=== PATIENT | male | born 1960 | race Caucasian/White ===

== ENCOUNTER 2020-07-23 12:23 | Inpatient (IN) | payer OTHER ==
[~2020-07-23] VITALS: Ht 152.4 cm; Wt 44.7 kg
--- NOTE | ~2020-07-23 | HC ---
[facility] [place] [address] CONSULTATION Name: PARAMJITCOSTA Room #: 458-P [facility] IN ..#: [id number] Admission: 07/23/20 Attend Phys: Kim Li Discharge: Date of : 64 Report #: [id number] THIS REPORT FOR: cc: YAMILKA - No family physician/PCP YAMILKA - No family physician/PCP Jose Delgado MD ~ DATE OF SERVICE: 07/27/2020 WOUND CARE CONSULTATION PERSONAL PHYSICIAN: None on staff. CHIEF COMPLAINT: Multiple decubitus ulcers. HISTORY OF PRESENT ILLNESS: This is a 59-year-old white male who supposedly resides in a care facility, who presented through the Emergency Department for altered mental status when he showed up for his dialysis treatment 2 days ago. The patient himself is obtunded and unable to give any history. There is no previous history from this patient. The patient was found to have multiple decubitus ulcers upon admission, which we have been asked to follow. PAST MEDICAL HISTORY: Significant for end-stage renal disease, on hemodialysis; history of a previous CVA. CURRENT MEDICATIONS: Unknown. DRUG ALLERGIES: Unknown. SOCIAL HISTORY: The patient resides in a care facility. FAMILY HISTORY: Unobtainable because of the patient's obtunded state. REVIEW OF SYSTEMS: Unobtainable because of the patient's obtunded state. PHYSICAL EXAMINATION: VITAL SIGNS: Temperature 37.1, pulse 58, respirations 15, BP 118/58. GENERAL: This is an obtunded white male who is chronically ill appearing. HEENT: Normocephalic, atraumatic. Mucous membranes are exquisitely dry. Pupils are round. Sclerae white. NECK: Without JVD. LUNGS: Diminished breath sounds heard throughout. HEART: Regular. ABDOMEN: Soft, nontender. PEG tube is in place without excoriation. EXTREMITIES: Sacral area, the patient has a stage 3 decubitus ulcer in the sacral region, which is mix of granulation and slough. No signs of overt [address] [address] CONSULTATION Name: COSTA YUSUF Room #: 458-[facility] IN .R.#: [id number] Admission: 07/23/20 Attend Phys: Kim Li Discharge: Date of : 64 Report #: [id number] infection. The upper back, there is an unstageable decubitus ulcer in the thoracic region with 100% slough. On the left hip, there is a deep tissue injury, which is ecchymotic, but not open. On the right hip, there is a deep tissue injury, which is ecchymotic, but not open. On the right ankle, there is a deep tissue injury, which is ecchymotic, but not open. NEUROLOGIC: The patient is encephalopathic and obtunded. LABORATORY DATA: White count 15.2, hemoglobin 7.9. BUN 57, creatinine 4.4, albumin 1.6. IMPRESSION: 1. Stage III sacral decubitus ulcer present on admission. 2. Unstageable decubitus ulcer, right thoracic region, present on admission. 3. Bilateral hip deep tissue injuries present on admission. 4. Right ankle deep tissue injury present on admission. 5. End-stage renal disease, on hemodialysis. 6. Encephalopathy with severe debility. 7. Severe protein-calorie malnutrition with albumin 1.6. PLAN: We will do foam dressings to the upper back, bilateral hips and right ankle deep tissue injury and we will start Z-guard to the sacral ulcer twice daily and p.r.n. We will change the foam dressings every 2 days. We will put the patient on low air loss mattress, having turned every 2 hours. We will utilize his PEG tube for tube feedings to maximize his protein supplementation as much as possible. At this time, the patient does not appear to be a candidate for any type of physical and occupational therapy. We will continue all other current medications. By: [id number] Jose Delgado MD /nt
--- NOTE | ~2020-07-23 | EMS ---
[address] [address] EMS Patient Care Report Name: COSTA YUSUF Room #: REG [facility] Mejía#: [id number] Admission: 07/23/20 Attend Phys: Discharge: Date of : 64 Report #: [id number] THIS REPORT FOR: //name// Report Transmitted: 07/23/2020 12:45 EMS Care Summary [place], [place]/[facility] Incident [id number] @ 07/23/2020 11:51 Incident Location [address] [place] [address] DIALYSIS Patient COSTA YUSUF Male, 59 Years 1960 Patient Address [address] [address] Patient History Kidney/Renal Failure,Dialysis, Patient Allergies No known allergies, Chief Complaint ALTERED LOC Disposition Transported No Lights/[place] Dispatch Reason Unconscious/Fainting Transported To [facility] Narrative UPON ARRIVAL PT IN DIALYSIS CHAIR, NURSE STATES SHE HAS ONLY WORKED WITH PT ONCE BEFORE HE IS NEW BUT HE IS MORE ALTERED THAN HE WAS WHEN SHE LAST SAW. PT ARRIVED FROM HIS NURSING IN THIS STATE. PT NORMAL A&O X 1 BUT HAS BEEN UNABLE TO ANSWER ANY QUESTIONS AND APPEARS LETHARIC. PT NORMALLY ABLE TO ANSWER SOME QUESTIONS BUT CONFUSION IS NORMAL. PT ALSO HAS A FAST HR SO DIALYSIS WAS [address] [address] EMS Patient Care Report Name: COSTA YUSUF Room #: REG [facility] Mejía#: [id number] Admission: 07/23/20 Attend Phys: Discharge: Date of : 64 Report #: [id number] NOT PERFORMED. PT LIFTED TO [facility] AND TRANSPORTED TO [facility]. Initial Vitals @12:07P: 73,SpO2: 73, @12:07P: 130,BP: 127/82,Pain: 0/10,GCS: 12,Glucose: 185,SpO2: 84, @12:16P: 133,R: 20,BP: 121/79,GCS: 12,CO: 10,SpO2: 98,Revised Trauma: 11, Assessments @12:00MENTAL:Other,SKIN:HEENT:LUNG SOUNDS:General: No Abnormalities,ABDOMEN:General: No Abnormalities,PELVIS//GI:EXTREMITIES:Left Arm: No Abnormalities,Right Arm: No Abnormalities,PULSE:NEURO:No Abnormalities, Impression Altered Mental Status Procedures @12:00ALS AssessmentResponse: UnchangedSucceeded@12:08Saline Lock 10cc (20 ga) Site: Forearm-LeftResponse: UnchangedSucceeded@PTAOxygen FlowRate: 2 Device: Nasal Cannula (NC) Response: UnchangedSucceeded@12:053-Lead ECGResponse: UnchangedSucceeded Timeline AGRICULTURE INSTRUCTOR,Oxygen FlowRate: 2 Device: Nasal Cannula (NC) Response: UnchangedSucceeded, 11:49,Call Received 11:49,Dispatch Notified 11:51,Dispatched 11:52,En Route 11:58,On Scene 11:59,At Patient 12:00,ALS Assessment,Response: UnchangedSucceeded, 12:05,3-Lead ECG,Response: UnchangedSucceeded, 12:07,BP: / M,PULSE: 73,RR: R,SPO2: 73 Ox,ETCO2: ,BG: ,PAIN: ,GCS: , 12:07,BP: 127/82 M,PULSE: 130,RR: R,SPO2: 84 Ox,ETCO2: ,B,PAIN: 0,GCS: 12, 12:08,Saline Lock 10cc 20 ga Site: Forearm-Left,Response: UnchangedSucceeded, 12:11,Depart Scene 12:16,BP: 121/79 M,PULSE: 133,RR: 20 R,SPO2: 98 Ox,ETCO2: ,BG: ,PAIN: ,GCS: 12, 12:18,At Destination 12:37,Call Closed Disclaimer v1.1 Copyright 2020 [employer] This EMS Care Summary contains data elements from the applicable legal record (which may be displayed differently). It is designed to provide pertinent information for the following purposes: continuity of care, clinical quality, and state data reporting. The complete [place] [address] EMS Patient Care Report Name: COSTA YUSUF Room #: REG [facility] Mejía#: [id number] Admission: 07/23/20 Attend Phys: Discharge: Date of : 64 Report #: [id number] and administrators of the receiving hospital in ES's Patient Tracker. All data is provided "as is."
[2020-07-23 12:25] VITALS: BP 119/76
[2020-07-23 13:18] LABS: HEMATOCRIT 25.5 % (42.0-52.0); HEMOGLOBIN 7.9 gm/dL (14.0-18.0); MCH 29.2 pg (26.0-34.0); MCHC 30.8 g/dL (28.0-37.0); PLATELET COUNT 783 thou/uL (150-400); RBC 2.69 mil/uL (4.50-6.00); RDW 19.9 % (10.5-14.5)
[2020-07-23 13:25] LABS: BE(vivo) -2.3 mmol/L (-2 to +3); HCO3 22.2 mmol/L (22.0-26.0); PCO2 36.5 mmHg (35.0-45.0); PO2 127.9 mmHg (80.0-100.0); pH 7.401 (7.360-7.450); sO2 98.6 % (92.0-98.0)
[2020-07-23 13:26] LABS: CALCIUM 11.8 mg/dL (8.5-10.1); CREATININE 6.9 mg/dL (0.7-1.3); POTASSIUM 5.6 mmol/L (3.5-5.1)
[2020-07-23 13:32] LABS: ALBUMIN 2.3 g/dL (3.4-5.0); TOTAL BILIRUBIN 0.3 mg/dL (0.2-1.0); TOTAL PROTEIN 9.4 g/dL (6.4-8.2)
--- NOTE | 2020-07-23 14:29 | EKG ---
[address] [address] ELECTROCARDIOGRAM REPORT Name: COSTA YUSUF [id number] Admission: 07/23/20 Attend Phys: Discharge: Date of : 64 Report #: [id number] [facility] ED Test Date: 2020-07-23 Test Time: 13:51:07 Pat Name: COSTA YUSUF Department: Room: Gender: Telecommunicator Supervisor: paramjit : 1960 Requested By: Oniel Gupta Order Number: [id number] MD: Ruddy Flores Measurements Intervals [place] Rate: 117 P: 78 ME: 163 QRS: 84 QRSD: 87 T: 71 QT: 340 QTc: 475 Interpretive Statements Sinus tachycardia Anteroseptal infarct, age indeterminate No previous ECG available for comparison Electronically Signed On 07-23-2020 14:28:50 PLANER OPERATOR / GRADER by Ruddy Flores [email or web address] <ELECTRONICALLY SIGNED> By: Ruddy Flores MD, [facility] 07/23/20 1428 1351 1351 Ruddy Flores MD, FACC /EPI
[2020-07-23 14:44] LABS: ABSOLUTE NEUTROPHILS 21.1 thou/uL (1.4-8.2)
[2020-07-23 14:45] LABS: ANISOCYTOSIS 2+; POLYCHROMASIA SLIGHT
[2020-07-23 14:46] LABS: URINE BILIRUBIN NEGATIVE (Negative); URINE BLOOD TRACE (Negative); URINE COLOR YELLOW; URINE GLUCOSE-RANDOM* NEGATIVE (Negative); URINE KETONES NEGATIVE (Negative); URINE NITRITE-REFLEX NEGATIVE (Negative); URINE PROTEIN (DIPSTICK) TRACE (Negative); URINE UROBILINOGEN 0.2 E.U./dl (0.2-1.0)
[2020-07-23 14:46] LABS: HYPOCHROMASIA SLIGHT
[2020-07-23 14:47] LABS: URINE CLARITY HAZY; URINE LEUKOCYTES-REFLEX 2+ (Negative)
[2020-07-23 14:53] LABS: SQUAMOUS None Seen /LPF (0-3)
[2020-07-23 14:54] LABS: BACTERIA-REFLEX 1-9 Few /HPF (None Seen); URINE RBC 0-2 Rare /HPF (0-2); URINE WBC-REFLEX 0-5 Rare /HPF (0-5)
[2020-07-23 14:55] LABS: AMORPHOUS URATES Few /LPF (None Seen); CASTS None Seen /LPF (None Seen)
[2020-07-23] MEDS ORDERED: TYLENOL325 MG PO (15:07)
[2020-07-23 16:00] LABS: APTT 25.4 Seconds (24.5-32.8); INR 1.2; PROTIME 11.6 Seconds (9.3-11.4)
[2020-07-23 20:55] VITALS: BP 122/89
[2020-07-23 21:59] VITALS: BP 108/72
[2020-07-23 22:51] VITALS: BP 127/74
[2020-07-24] VITALS (11 sets, daily range): BP systolic 117–149; BP diastolic 62–83
[2020-07-24 06:30] LABS: ALBUMIN 1.7 g/dL (3.4-5.0)
[2020-07-24 06:39] LABS: CREATININE 3.1 mg/dL (0.7-1.3); POTASSIUM 4.2 mmol/L (3.5-5.1)
--- NOTE | 2020-07-24 07:32 | NUR ---
PT ARRIVED TO ON CART VIA ER. HEMO DIALYSIS WAS DONE IN ER. DILTIAZEM DRIP AT 15ML/HR INFUSING FOR AFIB, HR IN 80'S AND TELE SHOWS AFIB STILL PRESENT. NPO STATUS SINCE ARRIVAL FOR POSSIBLE LUMBAR PUNCTURE. NO PAPER WORK SENT WITH PT FROM FACILITY. WILL ATTEMPT TO CALL SNF TODAY FOR BETTER MED REC AND H/P. ADMISSION COMPLETED, CARE PLAN STARTED AND INTERVENTIONS IN PLACE. PT IS A/O X0 AND AMS.
--- NOTE | 2020-07-24 10:33 | NUR ---
WOUND CONSULT; ASESSMENT FINDINGS; THE PATIENT ARRIVED AT OUR FACILITY WITH TWO (2) DEEP TISSUE INURIES TO THE RIGHT HIP AND RIGHT FOOT. THEY ARE STABLE AT THIS TIME. THE PATIENT CURRENTLY HAS A LOW AIRLOSS PUMP/MATTRESS EMPLOYED. RECOMMENDATIONS; 1-CONTINUE LOW AIRLOSS PRESSURE REDISTRIBUTION THERAPY. 2-TURN PATIENT EVERY TWO (2) HOURS. 3-PAINT WOUNDS WITH BETADINE APPLY A BORDER FOAM, CHANGE M/W/F PRN. DISCUSSED WITH TYE
--- NOTE | 2020-07-24 11:07 | NUR ---
Nutrition: REC start Nepro tube feeds to reach 35 mL/hr. If no feeding pump available, REC 4 cartons Nepro daily via bolus. Defer fluid needs to renal.
--- NOTE | 2020-07-24 11:23 | NUR ---
CARE ASSUMED AT 0700, PT AWAKE, UNABLE TO FOLLOW COMMANDS, DISORIENTED X4. PT IS ON ROOM AIR, NO SIGNS OF DISTRESS. CALLED PT FACILITY, TO GET PT CHART. PT HAS A LUMBAR PUNCTURE SCHEDULED, CALLED FACILITY TO FIND OUT WHO PT'S DPOA OR NEXT OF KIN IS, WAS TOLD PT DO NOT HAVE ONE, PRIOR TO ADMISSION HE WAS MAKING DECISION FOR HIMSELF. DR. MTZ MADE AWARE AND HE SIGNED CONSENT. SOLITARIO PRADO WITH PT ENHANCED PRECAUTIONS AVIS. DANYA D/C, HR IN 70. FALL PRECAUTIONS IN PLACE. WILL CONTINUE TO MONITOR.
[2020-07-24 12:07] LABS: HEP B SURFACE Ab(ANTI-HBS Non Reactive (()); HEPATITIS B SURFACE AG Negative (Negative)
[2020-07-24 14:12] LABS: CSF CLARITY CLEAR; CSF COLOR COLORLESS
[2020-07-24 14:22] LABS: CSF GLUCOSE 70 mg/dL (40-70); CSF PROTEIN 40 mg/dL (15-45)
[2020-07-24 14:25] LABS: CSF RBC 5 /mm3; CSF WBC 0 /mm3 (0-10)
--- NOTE | 2020-07-24 15:43 | NUR ---
1400 PT BACK FROM LUMBAR PUNCTURE PROCEDURE, VITALS SIGNS TAKE PER PROTOCOL. PT HPB 90 DEGREE. DENIES ANY NEEDS DEBBI
--- NOTE | 2020-07-24 16:16 | NUR ---
INITIAL ASSESSMENT: Received consult. TIMA reviewed chart and spoke with nursing and attending physician. Pt was admitted from [facility] due to AMS/sepsis. Pt placed in Enhanced Isolation to r/o COVID-19. Pt's test was negative. Enhanced Isolation precautions have been discontinued. Pt is a dialysis pt. Pt with hx of CVA. Pt unable to answer questions. Nursing received call from a immigration case manager who knows pt. SW placed call to the contact number: [phone] and left voice message. TIMA left message for TIMA Arroyo at [facility] to obtain info on pt. Pt had LP earlier today. Per nursing, pt was living at home. Was found down at home and taken to [facility]. Pt was then transferred to [facility] from [facility]. Awaiting call back from [facility] at this time. TIMA is following to assist as needed with discharge planning.
[2020-07-24] MEDS ORDERED: PROAIR HFA8.5 GM NEB (17:33)
[2020-07-24] MEDS ORDERED: NORVASC 2.5 MG2.5 M1 PO (17:35)
[2020-07-24] MEDS ORDERED: ASA81BEC PO (17:35)
[2020-07-24] MEDS ORDERED: DULCOLAX10 MG RECTAL (17:37)
[2020-07-24] MEDS ORDERED: FOLIC ACID1 MG PO (17:38)
[2020-07-24] MEDS ORDERED: HYDRALAZINE 2525 MG PO (17:39)
[2020-07-24] MEDS ORDERED: LEVETIRACETAM500 M1 PO (17:48)
[2020-07-24] MEDS ORDERED: SENNA-DOCUSATE1 EAC1 PO (17:52)
[2020-07-24] MEDS ORDERED: VITAMIN B-1100 M2 PO (17:53)
[2020-07-24] MEDS ORDERED: SERTRALINE HCL100 MG PO (17:53)
[2020-07-24] MEDS ORDERED: TRAMADOL 50 MG50 MG PO (17:57)
[2020-07-24] MEDS ORDERED: KEPPRA 500 MG500 M1 PO (17:59)
[2020-07-24] MEDS ORDERED: WHITE PETROLATUM5 G1 TOP (18:01)
--- NOTE | 2020-07-24 18:21 | NUR ---
REPORT GIVEN TO TYE MIGUEL. PT TX TO 4W, ROOM 455
--- NOTE | 2020-07-24 20:02 | NUR ---
REceived pt from [facility], placed on telemetry. IV fluids resumed, POC followed with no signs or verbalizations of distress noted. Endorsed to the night nurse.
[2020-07-25 04:06] LABS: SERUM ALBUMIN 2.6 g/dL (3.8-4.9)
[2020-07-25 05:20] LABS: MCH 30.3 pg (26.0-34.0); MCV 94.9 fL (80.0-100.0); RBC 1.94 mil/uL (4.50-6.00); RDW 19.2 % (10.5-14.5); WBC 15.2 thou/uL (4.0-11.0)
[2020-07-25 05:29] LABS: HEMATOCRIT 18.4 % (42.0-52.0); HEMOGLOBIN 5.9 gm/dL (14.0-18.0)
[2020-07-25 06:11] LABS: ALBUMIN 1.6 g/dL (3.4-5.0); CALCIUM 8.9 mg/dL (8.5-10.1); CREATININE 3.5 mg/dL (0.7-1.3); PHOSPHORUS 5.1 mg/dL (2.5-4.9); POTASSIUM 3.8 mmol/L (3.5-5.1)
[2020-07-25 07:28] VITALS: BP 163/90
--- NOTE | 2020-07-25 08:28 | NUR ---
progress pt a/o x4 able to express needs and assist in oral care, repositioned as needed, ivf's infusing tele reading afib but stable rate. pt remains npo, critical hgb of 5.9 reported to don turner 1 unit prbc's ordered with a hgb recheck 1 hour post transfusion awaiting blood.
[2020-07-25 10:47] VITALS: BP 137/67; BP 138/52; BP 142/61; BP 155/94
--- NOTE | 2020-07-25 13:39 | NUR ---
FAXED CLINICAL UPDATES TO [facility] INCLUDING NEGATIVE COVID AND WOUND CARE NOTES. P:[phone]; F:[phone].
--- NOTE | 2020-07-25 14:38 | NUR ---
CM CALLED AND SPOKE WITH SW AT [facility] THIS DAY. PT HAD COME TO THEM FROM [facility]. PT GOES TO DIALYSIS MWF CHAIR TIME AT 10:30 AT [facility]. STAFF INDICATED THAT PT'S HAS NO FAMILY BUT THAT A FRIEND ESDRAS Berry IS LISTED CONTACT . CM INDICATED PREVIOUSLY WAS [facility]. PT'S WC IS AT [facility]. CLINICAL UPDATE SENT TO FACILITY. THEY INDICATED THAT THEY WILL BE ABLE TO ACCEPT PT BACK ONCE MEDICALLY STABLE. CM TO FOLLOW INDICATED WITH DC PLANNING. PT HAD LP YESTERDAY. PT GETTING BLOOD TRANSFUSION.
[2020-07-25 15:25] LABS: HEMATOCRIT 24.7 % (42.0-52.0)
[2020-07-25 15:27] VITALS: BP 141/75
[2020-07-25 15:28] LABS: HEMOGLOBIN 7.9 gm/dL (14.0-18.0)
[2020-07-25 19:42] VITALS: BP 151/73
--- NOTE | 2020-07-25 20:21 | NUR ---
Received awake on bed. On nothing per orem, pt informed and aware; mouth care done. Assisted in ADLs. Vital signs stable. On telemetry; no complains and signs of chest pain, crushing sensation and heaviness. With PEG- no dressing in place, dressing changed today- verified with Dr Li if ok to use- may use PEG, TF regimen ordered; Nephro at 45ml/hr started, H2O flushes ordered as well. Dialysis pt, --, not seen by dialysis today- night RN informed; with dialysis access at R chest. With noel in place, draining well; output measured and recorded accordingly. With wound at R hip and bilat ankles- pt refused dressing changes today, despite trying several times- night RN informed. Pt turned regulary, refusing at times; pillows placed on pressure points. With orders for 1 unit PRBC blood transfusion, pt unable to sign consent; no family or DPOA listed- Dr Li signed consent; HB: 5.9. Verified with blood bank staff re: donor type and pt's type- O+ and O-, ok to transfuse as per blood bank staff. Blood transfused as per protocol; no untoward reactions noted. Falls bundle in place. [facility] called, asked for update- given; informed that pt's wheelchair is with them- CM informed; pt's rehab center also called- update given. Repeat H&H at 1600: 7.9- Night RN updated. Had a bowel movement today- charted; no bleeding noted. To continue monitoring patient.
[2020-07-26 07:13] VITALS: BP 158/90
[2020-07-26 08:25] LABS: ALBUMIN 1.6 g/dL (3.4-5.0); CALCIUM 9.4 mg/dL (8.5-10.1); CREATININE 4.4 mg/dL (0.7-1.3); PHOSPHORUS 5.4 mg/dL (2.5-4.9); POTASSIUM 3.9 mmol/L (3.5-5.1)
--- NOTE | 2020-07-26 08:40 | NUR ---
PROGRESS PT SLEPT THROUGHOUT NOC. REPOSITIONED NEEDED TUBE FEEDING INFUSING WITHOUT DIFFULTY SCANT RESIDUAL NOTED ON CHECK 400 CC'S WATER FLUSHED THROUGHOUT NIGHT , MUKHERJEE INTACT DRAINING LIGHT JETT URINE IN MODERATE AMOUNTS. WOUNDS TO BOTH ANKLES AND RIGHT HIP C/D/I. CONTINUE POC.
--- NOTE | 2020-07-26 09:26 | NUR ---
WOUND CARE F/U; ON THE F/U ASSESSMENT TODAY TO ASSESS RIGHT HIP AND THE RIGHT ANKLE, I DESCOVERED A STAGE 3 PRESSURE ULCER TO THE SACRUM, A LEFT HIP DEEP TISSUE INJURY THAT IS STABLE AND A DEEP TISSUE INJURY TO THE RIGHT UPPER BACK. THE RIHIP AND ANKLE DTI'S REMAIN STABLE. THE SACRUM WOUND HAS BEEFY RED TISSUE THAT HAS S/S OF VARING DEGREES OF HEALING, AND CERTAINLY WAS PRESENT ON ADMISSION. RECOMMENDATIONS; 1-CONSULT DR TAMIKO KEARNEY. 2-BORDER FOAM DRESSINGS TO ALL AREAS. DISCUSED WITH TYE
--- NOTE | 2020-07-26 12:42 | NUR ---
ASSUMED PT CARE THIS AM. PT ALERT TO SELF BUT SLOW TO REPSOND WHEN ASKED QUESTIONS. BOWEL MOVEMENT TODAY. PT BEING REPOSITIONED ACCORDINGLY. WOUND NURSE CAME AND DRESSED WOUNDS. NEW TUBE FEEDING HUNG, RATE OF 45/HR. RECEIVING DIALYSIS TODAY. FALL PRECAUTIONS IN PLACE. FOELY IN PLACE, DRAINING WELL.
[2020-07-26 15:23] VITALS: BP 128/78
[2020-07-26 20:15] VITALS: BP 140/81
--- NOTE | 2020-07-27 05:50 | NUR ---
VSS-AFEBRILE. REMAINS ON ROOM AIR. NON VERBAL OVERNIGHT, OPENS EYES WHEN SPOKEN TO. INCONTINENT TWICE OF BOWEL, DRAINING ADEQUATE AMOUNTS OF URINE TO DEPENDENT DRAINAGE BAG. NO RESIDUAL NOTED WITH TUBE FEEDING. TURNED AND PROVIDED ORAL CARE EVERY TWO HOURS. PRESSURE WOUND DRESSINGS REMAIN IN PLACE. FALL PRECAUTIONS IN PLACE.
[2020-07-27 07:52] VITALS: BP 118/58
--- NOTE | 2020-07-27 12:42 | NUR ---
ASSUMED PT CARE THIS AM. PT RECIEVING NEPHRO AT 45. DIARRHEA NOTED THROUGHOUT SEAL SKINNER, REPORTED TO DR. CARDENAS SYSTEM TO BE PLACED. ON AN ENVISION MATTRESS. PT BEING REPOSITIONED ACCORDINGLY. IV PATENT. MEDS GIVEN WITHOUT COMPLAINT THIS AM. FALL PRECAUTIONS IN PLACE.
--- NOTE | 2020-07-27 13:17 | NUR ---
Nutrition: Nepro at 45 mL/hr meets 125% kcal needs, 116% high end protein needs. Concerned about overfeeding. REC decrease rate to 40 mL/hr which will adequately meet needs for wound healing/dialysis. Defer fluid needs to renal.
[2020-07-27 14:08] LABS: CSF IgG 3.3 mg/dL (0.0-8.6)
--- NOTE | 2020-07-27 14:50 | NUR ---
PT HAD DIALYSIS YESTERDAY. PT HAD FECAL MANAGEMENT SYSTEM PLACED THIS DAY AND A STOOL SAMPLE TAKEN TO TEST FOR CDIFF. CM SPOKE WITH CHANDLER AT THE FACILITY AND PROVIDED UPDATE. CLINICAL UPDATE FAXED TO FACILITY. CARE TEAM INDICATED NO DISCHARGE OVER THE WEEKEND. CM TO FOLLOW INDICATED WITH DC PLANNING.
[2020-07-27 15:46] VITALS: BP 118/58
[2020-07-27 15:47] VITALS: BP 140/77
--- NOTE | 2020-07-28 05:01 | HC ---
[facility] [place] [address] CONSULTATION Name: COSTA YUSUF Room #: 458-P [facility] [place] M.R.#: [id number] Admission: 07/23/20 Attend Phys: Kim Li Discharge: Date of : 64 Report #: [id number] THIS REPORT FOR: cc: YAMILKA - No family physician/PCP YAMILKA - No family physician/PCP Alex Harrington MD ~ DATE OF SERVICE: 07/27/2020 INFECTIOUS DISEASE CONSULTATION ATTENDING PHYSICIAN: Dr. Li. REASON FOR EVALUATION: Positive blood culture, concerned about line-related septicemia versus sacral decubitus ulcer, complicating infection. HISTORY OF SUBJECTIVE: Chart reviewed, patient examined. This is a 59-year-old gentleman with significant disease burden, has diabetes mellitus, has been complicated by end-stage renal disease, now on dialysis thrice weekly, presented from a [facility] facility. He has had significant encephalopathy. It is difficult to know with certain what his baseline is. He does arouse. Speech is nonsensical. As he presented, he was in mild respiratory failure. Urine was collected and is otherwise unrevealing. Blood cultures at that time were collected, now 1 out of 2 with Gram-positive cocci, identified as Staphylococcus epidermidis. Wound culture from the decubitus ulcer showed rare wbcs, no organisms. Cultures negative thus far. He has had some intermittent low-grade temperature elevations, apparently is tolerating enteral feedings, which he gets, is empirically dosed with vancomycin, received cefepime as well as has been discontinued. ALLERGIES: None known. MEDICATIONS: Currently include vancomycin, sertraline, levetiracetam, heparin, insulin lispro, zolpidem, p.r.n. analgesics and antiemetics. PAST MEDICAL HISTORY: End-stage renal disease, on dialysis; osteoporosis; chronic pancreatitis; diabetes mellitus. SOCIAL HISTORY: He is disabled. FAMILY HISTORY: Noncontributory. REVIEW OF SYSTEMS: Not reliably obtained. PHYSICAL EXAMINATION: GENERAL: He appears chronically ill, much older than stated age. He is [address] [address] CONSULTATION Name: COSTA YUSUF Room #: 458-P [facility] [place] M.R.#: [id number] Admission: 07/23/20 Attend Phys: Kim Lee Mahoganyhelder Discharge: Date of : 64 Report #: [id number] undernourished. He does arouse, although again his speech is nonsensical. VITAL SIGNS: Temperature 98.8, pulse 58, respirations 15, and blood pressure 118/58. SKIN: Warm, dry, no rashes. HEENT: Normocephalic. Extraocular muscles intact. NECK: Appears to be supple. LUNGS: Few scattered coarse breath sounds. HEART: Distant, regular, has a soft systolic murmur. ABDOMEN: Soft, nontender. Of note, photographs of the sacral decubitus ulcer, there appears to be unstageable [id number]-db-eamqkzgs degree of inflammation noted. LABORATORY DATA: Cultures as described above. Most recent BMP: Sodium 145, potassium 3.9, chloride 110, bicarbonate is 21, anion gap of 14, BUN and creatinine 57 and 4.4, glucose 122, albumin 1.6. Vancomycin random was 9. CBC on 07/25/2020, white count of 15.2, H and H of 5.9 18.4, platelets of 438. Did undergo a spinal tap, which showed CSF to be clear and colorless, 0 white cells, 5 red cells, glucose of 70, protein of 40. Urine culture is negative thus far. ASSESSMENT: Positive blood culture in a patient that certainly is at risk for infectious complications including septicemia given longstanding indwelling central venous catheter due to dialysis. He apparently screened for sepsis as well. We will continue vancomycin. We will repeat blood cultures, although it likely favors a noninfectious or false positive contaminant. The wound itself may well have some degree of low-grade infection as well. We will continue wound care as prescribed, offloading, at some point may need debridement. Consider imaging of the sacral site, it is difficult to ascertain his baseline at this point. I will try to optimize her nutritional status. We will see if his encephalopathy improves overall difficult situation. <ELECTRONICALLY SIGNED> By: Alex Harrington MD 07/28/20 0501 1118 1731 Alex Harrington MD /nt
--- NOTE | 2020-07-28 05:10 | NUR ---
VSS-AFEBRILE. AWAKE AND ABLE TO ANSWER SOME YES AND NO QUESTIONS. WAS ABLE TO ASK STAFF TO SMOKE A CIGARETTE. SUCTIONED LARGE AMOUNTS OF CLEAR SPUTUM FROM MOUTH, HAS DIFFICULTY GETTING SPUTUM OUT OF MOUTH. INCONTINENT OF LARGE, WATERY STOOLS MULTIPLE TIMES THROUGHOUT NIGHT. ALL MEDICATIONS GIVEN THROUGH PEG TUBE WITH WATER FLUSHES. ORAL CARE AND TURNS EVERY TWO HOURS FOR COMFORT. FALL PRECAUTIONS IN PLACE.
[2020-07-28 07:01] LABS: HEMOGLOBIN 6.8 gm/dL (14.0-18.0); MCHC 32.2 g/dL (28.0-37.0)
[2020-07-28 07:03] LABS: HEMATOCRIT 21.1 % (42.0-52.0); MCH 29.2 pg (26.0-34.0); MCV 90.9 fL (80.0-100.0); RBC 2.32 mil/uL (4.50-6.00)
[2020-07-28 07:16] LABS: ALBUMIN 1.5 g/dL (3.4-5.0); CALCIUM 9.9 mg/dL (8.5-10.1); POTASSIUM 3.5 mmol/L (3.5-5.1)
[2020-07-28 07:27] LABS: CREATININE 2.9 mg/dL (0.7-1.3)
[2020-07-28 08:00] VITALS: BP 121/65
--- NOTE | 2020-07-28 15:25 | NUR ---
Assumed pt care at 7am.Assessment completed.vss.Complete bath and bed change done by change control coordinator.Turned and repositioned q2h for comfort.Meds given per peg tube and well tolerated.Dr Li here,order noted.No verbal c/o at present.Will continue to monitor.
[2020-07-28 16:13] VITALS: BP 138/68
[2020-07-28 19:00] VITALS: BP 136/50
--- NOTE | 2020-07-29 03:25 | NUR ---
VSS-AFEBRILE. ALERT AND ORTINETED X 2, AROUSES TO COMMAND, ABLE TO FOLLOW SIMPLE COMMANDS. TURNED AND PROVIDED ORAL CARE EVERY TOW HOURS FOR COMFORT. TUBE FEEDING RUNNING WITH VERY SMALL AMOUNT OF RESIDUAL PRESENT. MUKHERJEE CONTINUES TO DRAIN SMALL AMOUNT OF LIGHT YELLOW URINE TO DEPENDENT DRAINAGE BAG. FALL PRECAUTIONS IN PLACE.
[2020-07-29 05:21] LABS: ALBUMIN 1.4 g/dL (3.4-5.0); CALCIUM 10.1 mg/dL (8.5-10.1); CREATININE 3.7 mg/dL (0.7-1.3); PHOSPHORUS 2.7 mg/dL (2.5-4.9); POTASSIUM 3.5 mmol/L (3.5-5.1)
[2020-07-29 05:23] LABS: HEMOGLOBIN 6.6 gm/dL (14.0-18.0)
[2020-07-29 05:26] LABS: HEMATOCRIT 20.3 % (42.0-52.0); MCH 29.3 pg (26.0-34.0); MCHC 32.4 g/dL (28.0-37.0); MCV 90.4 fL (80.0-100.0); RBC 2.25 mil/uL (4.50-6.00); RDW 18.7 % (10.5-14.5); WBC 15.5 thou/uL (4.0-11.0)
[2020-07-29 08:11] VITALS: BP 147/79
[2020-07-29 15:40] VITALS: BP 143/68
[2020-07-29 16:25] VITALS: BP 148/97; BP 172/85
[2020-07-29 19:40] VITALS: BP 165/99
--- NOTE | 2020-07-29 20:10 | NUR ---
Assumded pt care this am, VS stable, on tele would run ST at times. Hgb is noted to be at 6.6 blood transfusion orders given. Hgb was also noted to be 6.8 on 07/28 at 0426, no Blood transfusion was ordered MD aware. PEG tube in place nepro running at goal rate of 45. For dialysis tomorrow, refused Q2 turns at times. POC followed with no signs of distress. Endorsed to the night nurse, blood transfusion to end at 2039
--- NOTE | 2020-07-30 03:58 | NUR ---
PT CARE ASSUMED WITH PT IN BED WITH BLOOD TRANSFUSING.BLOOD TRANSFUSION FINISHED AT 2030 WITH NO REACTION AND VITAL SIGN WNL FOR PATIENT.PT IS ON BEREST.PT IS Q2 TURN AND WOUND DRESSINGS DONE.PT HAS A VERY LARGE LOOSE BM THIS AM.PT IS MAX ASSIST.PT HAS A PEG TUBE WITH LEPRO FLOWING AT 45CC/HR WITH IS THE GOAL.PT IS ON TELE NSR AND ST.WILL CONTINUE TO MONITOR PER POC
[2020-07-30 06:15] LABS: HEMATOCRIT 27.1 % (42.0-52.0)
[2020-07-30 07:00] LABS: HEMOGLOBIN 8.7 gm/dL (14.0-18.0)
[2020-07-30 07:32] VITALS: BP 173/82
--- NOTE | 2020-07-30 13:08 | NUR ---
ASSUMED PT CARE THIS AM. PT ALERT, RESPONDING TO QUESTIONS. PT BEING REPOSITIONED APPROPRIATLEY. NEPHRO RUNNING AT 45. WOUND DRESSINGS C/D/I. ON ENVISION MATTRESS. FALL PRECAUTIONS IN PLACE.
[2020-07-30 15:33] VITALS: BP 163/76
[2020-07-30 20:00] VITALS: BP 157/99
--- NOTE | 2020-07-31 05:05 | NUR ---
VSS-AFEBRILE. RESTED WELL THROUGH NIGHT WITH FEW NEEDS. INCONTINENT OF STOOL TWICE OVERNIGHT. STOOLS WERE DARK BROWN AND WATERY. TUBE FEEDING RUNNING AT GOAL RATE OF 45ML/HOUR, RESIDUAL OF 10ML. WATER BOLUSES ADMINISTERED ORDERED. FALL PRECAUTIONS IN PLACE. TURNED AND PERFORMED ORAL CARE EVERY TWO HOURS FOR COMFORT. BARRIER CREAM APPLIED TO ALL ABRASIONS AND SORES.
[2020-07-31 05:57] VITALS: BP 171/100
[2020-07-31 06:24] LABS: HEMATOCRIT 25.1 % (42.0-52.0)
--- NOTE | 2020-07-31 13:03 | NUR ---
ASSUMED PT CARE THIS AM. PT MUKHERJEE IS PATENT. BOTH IV'S ARE PATENT. TUBE FEEDING RUNNING AT 45. PT BEING REPOSITIONED Q2H. RECEIVING DIALYSIS TODAY. FALL PRECAUTIONS IN PLACE.
[2020-07-31] MEDS ORDERED: METOPROLOL TART25 MG PO (13:23)
[2020-07-31] MEDS ORDERED: AUGMENTIN400 MG/53 PER TUBE (13:23)
[2020-07-31] MEDS ORDERED: CARDIZEM30 MG PER TUBE (13:23)
--- NOTE | 2020-07-31 16:01 | NUR ---
CARE TEAM INDIATED THAT THERE IS A REPEAT H/H PENDING, PT'S BP IS A LITTLE HIGH. SHE INDICATED THAT PT MAY BE MEDICALLY STABLE TO DC BACK TO FACILITY TOMORROW. CLINICAL UPDATE SENT TO [facility] AND THEY WERE NOTIFIED OF POSSIBLE DC TOMORROW.
--- NOTE | 2020-07-31 16:05 | NUR ---
FAXED CLINICAL UPDATE TO [facility] RECEIVED CONFIRMATION PT WILL DC TOMORROW.
[2020-07-31 16:14] LABS: HEMATOCRIT 22.9 % (42.0-52.0); HEMOGLOBIN 7.4 gm/dL (14.0-18.0)
--- NOTE | 2020-07-31 16:53 | NUR ---
ASSUMED PT CARE THIS AM. PT YAZ IS PATENT. TUBE FEEDING RUNNING AT 45. PT BEING REPOSITIONED Q2H. RECEIVING DIALYSIS TODAY. FALL PRECAUTIONS IN PLACE.
[2020-07-31 19:05] VITALS: BP 143/74
--- NOTE | 2020-08-01 05:26 | NUR ---
VSS-AFEBRILE. ALERT AND ORIENTED X 4, C/O SEVERE BILATERAL LOWER EXTREMITY PAIN, PATIENT STATES THAT IT IS CAUSED BY CRAMPING AND TENSION IN HER LE MUSCLES. TREMORS ARE VISIBLE. ORAL AND IV PAIN MEDICATIONS PROVIDES PARTIAL RELIEF OF PAIN. BLOOD PRESSURE REMAINED STABLE THROUGH NIGHT. SR-LUNGS CLEAR-CPAP WITH 2L O2 BLEED IN WHILE SLEEPING. WOUND PRESENT ON SMALL OF BACK. NO REPORTED NAUSEA/VOMITING. TURNED AND OFFERED FLUIDS EVERY TWO HOURS. FALL PRECAUTIONS IN PLACE. BED PADDED FOR SEIZURE PRECAUTIONS PATIENT HAD LAST SEIZURE JUST TWO MONTHE AGO. CALLS APPROPRIATELY FOR ANY NEEDED ASSISTANCE. PATIENT IS PARAPLEGIC WITH ONLY USE OF UPPER EXTREMITIES.
--- NOTE | 2020-08-01 05:32 | NUR ---
VSS-AFEBRILE. TUBE FEEDING TURNED OFF AT MIDNIGHT PER ORDER FROM DR MILES. TURNED AND ORAL CARE PERFORMED EVERY TWO HOURS. NO BM THIS SHIFT. SMALL AMOUNT OF URINETO DEPENDENT DRAINAGE BAG VIA MUKHERJEE CATHETER, FALL PRECAUTIONS IN PLACE. EASILY AROUSABLE THROUGH NIGHT. C/O PAIN WITH ANY MANIPULATION. PAIN IS WELL RELIEVED WITH PRESCRIBED IV MORPHINE.
[2020-08-01 08:06] VITALS: BP 125/67
[2020-08-01 10:21] LABS: HEMATOCRIT 21.7 % (42.0-52.0); HEMOGLOBIN 7.2 gm/dL (14.0-18.0)
[2020-08-01 11:44] LABS: CALCIUM 9.8 mg/dL (8.5-10.1); CREATININE 1.9 mg/dL (0.7-1.3); POTASSIUM 3.8 mmol/L (3.5-5.1)
--- NOTE | 2020-08-01 14:02 | NUR ---
GI CONSULTED AND PLAN FOR EGD THIS DAY. CEZAR MET WITH PT AT BEDSIDE THIS DAY CM ASKED PT SPECIFICALLY IF HE HAD ANY FAMILY OR CONTACTS REGARDING MEDICAL DECISIONS. PT INDICATED HE DIDN'T. CEZAR ASKED ABOUT [facility] WHO [facility] HAD LISTED A CONTACT AND PT HAD NO IDEA WHO THAT WAS. CEZAR CALLED THE NUMBER AND IT BELONGS TO A ACCESS COORDINATOR FROM [facility] WHO HAD FOLLOWED PT FOR A FEW YEARS PRIOR TO PT'S ADMISSION TO [facility]. HE INDICATED HE WOULDN'T BE AN APPROPRIATE CONTACT ANY LONGER AND THAT PT HAS NO ONE ELSE. CEZAR NOTIFIED PHYSICAIN.
--- NOTE | 2020-08-01 15:46 | NUR ---
ASSUMED PT CARE THIS AM. PT TUBE FEEDINGS HELD FROM MIDNIGHT ON FOR EGD TODAY. EGD COMPLETED. PT HAS NO COMPLAINTS OF PAIN. BOTH IV'S ARE PATENT. PT ON TELE. FALL PRECAUTIONS IN PLACE.
[2020-08-01 16:15] VITALS: BP 143/88
[2020-08-01 19:27] VITALS: BP 119/72
[2020-08-02 08:00] VITALS: BP 139/99
[2020-08-02 08:05] LABS: HEMOGLOBIN 6.6 gm/dL (14.0-18.0)
[2020-08-02 08:06] LABS: ABSOLUTE NEUTROPHILS 5.3 thou/uL (1.4-8.2); BASOPHILS 0.9 % (0.0-2.0); EOSINOPHILS 5.2 % (0.0-3.0); HEMATOCRIT 20.4 % (42.0-52.0); LYMPHOCYTES 15.7 % (24.0-44.0); MCH 29.8 pg (26.0-34.0); MCHC 32.5 g/dL (28.0-37.0); MCV 91.8 fL (80.0-100.0); MONOCYTES 3.7 % (1.0-8.0); PLATELET COUNT 324 thou/uL (150-400); POLYS 74.5 % (36.0-66.0); RBC 2.22 mil/uL (4.50-6.00); RDW 19.4 % (10.5-14.5); WBC 7.2 thou/uL (4.0-11.0)
[2020-08-02 12:25] VITALS: BP 115/56; BP 132/83
--- NOTE | 2020-08-02 15:28 | NUR ---
Assumed pt care at 7am.Pt in bed receiving hemodialysis at the start of shift. Assessment completed.vss.Dr Carreon here.order noted.Pt in bed at present receiving blood transfusion .H&H will be done post transfusion.Medicated pt with zofran ivp this afternoon after pt vomited unmeasurable clear emesis.Will continue to monitor.
[2020-08-02 17:05] LABS: HEMATOCRIT 24.2 % (42.0-52.0)
--- NOTE | 2020-08-02 17:12 | NUR ---
FAXED DISCHARGE ORDERS/SUMMARY TO [facility]. PATIENT TO TO RETURN TO FACILITY TODAY, 08/02/20 AND PICKED UP BY [facility] AT 5:30. CONFIRMED WITH PAPITO AT [facility] THAT SHE RECEIVED ORDERS AND TIME PATIENT TO BE PICKED UP. P [phone]; FAX [phone] FAXED DISCHARGE ORDERS/SUMMARY AND PROGRESS NOTES TO [facility]. P [phone]; FAX [phone]
[2020-08-02 17:30] VITALS: BP 115/56
== END 2020-08-02 18:08 | DRG 871 ==
LOC: ER 12:23 → EROBS 15:12 → 3W 22:06 → 4W 07-24 17:40
PROVIDERS: Anesthesiology; Emergency Medicine; Hospitalist; Internal Medicine Nephrology; ADMIT Hospitalist; ATTEND Hospitalist
PROC: 5A1D70Z Performance of Urinary Filtration, Intermittent, Less than 6 Hours Per Day (ICD-10-PCS; principal; 2020-07-23)
PROC: 009U3ZX Drainage of Spinal Canal, Percutaneous Approach, Diagnostic (ICD-10-PCS; 2020-07-24)
PROC: B01B1ZZ Fluoroscopy of Spinal Cord using Low Osmolar Contrast (ICD-10-PCS; 2020-07-24)
PROC: 30233N1 Transfusion of Nonautologous Red Blood Cells into Peripheral Vein, Percutaneous Approach (ICD-10-PCS; 2020-07-25)
PROC: 5A1D70Z Performance of Urinary Filtration, Intermittent, Less than 6 Hours Per Day (ICD-10-PCS; 2020-07-28)
PROC: 5A1D70Z Performance of Urinary Filtration, Intermittent, Less than 6 Hours Per Day (ICD-10-PCS; 2020-07-30)
PROC: 0DJ08ZZ Inspection of Upper Intestinal Tract, Via Natural or Artificial Opening Endoscopic (ICD-10-PCS; 2020-08-01)
PROC: 5A1D70Z Performance of Urinary Filtration, Intermittent, Less than 6 Hours Per Day (ICD-10-PCS; 2020-08-02)
DX: A41.1 Sepsis due to other specified staphylococcus (principal); L89.153 Pressure ulcer of sacral region, stage 3; N18.6 End stage renal disease; G93.41 Metabolic encephalopathy; E43 Unspecified severe protein-calorie malnutrition; M48.56XA Collapsed vertebra, not elsewhere classified, lumbar region, initial encounter for fracture; K92.2 Gastrointestinal hemorrhage, unspecified; L89.890 Pressure ulcer of other site, unstageable; M81.0 Age-related osteoporosis without current pathological fracture; E11.22 Type 2 diabetes mellitus with diabetic chronic kidney disease; E87.5 Hyperkalemia; E86.0 Dehydration; Z20.822 Contact with and (suspected) exposure to COVID-19; E88.09 Other disorders of plasma-protein metabolism, not elsewhere classified; F10.10 Alcohol abuse, uncomplicated; D50.0 Iron deficiency anemia secondary to blood loss (chronic); K44.9 Diaphragmatic hernia without obstruction or gangrene; Z51.5 Encounter for palliative care; Z86.73 Personal history of transient ischemic attack (TIA), and cerebral infarction without residual deficits; Z79.82 Long term (current) use of aspirin; Z79.899 Other long term (current) drug therapy; Z93.1 Gastrostomy status
CPT/HCPCS: 10045; 10879; 32100; 62110; 62900; 70005

== ENCOUNTER 2020-08-10 11:13 | Inpatient (IN) | payer OTHER ==
[2020-08-10] VITALS (15 sets, daily range): BP systolic 125–186; BP diastolic 72–97
[~2020-08-10] VITALS: Ht 170.2 cm; Wt 52.8 kg
[~2020-08-10 11:13] MED LIST: ASA81BEC PO; AUGMENTIN400 MG/53 PER TUBE; CARDIZEM30 MG PER TUBE; DULCOLAX10 MG RECTAL; FOLIC ACID1 MG PER TUBE; HYDRALAZINE 2525 MG PER TUBE; KEPPRA 500 MG500 M1 PO; LEVETIRACETAM500 M1 PO; METOPROLOL TART25 MG PO; NORVASC 2.5 MG2.5 M1 PO; PROAIR HFA8.5 GM NEB; SENNA-DOCUSATE1 EAC1 PER TUBE; SERTRALINE HCL100 MG PER TUBE; TRAMADOL 50 MG50 MG PER TUBE; TYLENOL325 MG PER TUBE; VITAMIN B-1100 M2 PER TUBE; WHITE PETROLATUM5 G1 TOP
[2020-08-10 12:21] LABS: HEMATOCRIT 29.7 % (42.0-52.0); HEMOGLOBIN 9.5 gm/dL (14.0-18.0); MCH 29.4 pg (26.0-34.0); MCHC 32.2 g/dL (28.0-37.0); MCV 91.3 fL (80.0-100.0); PLATELET COUNT 443 thou/uL (150-400); RBC 3.25 mil/uL (4.50-6.00); RDW 19.2 % (10.5-14.5); WBC 24.7 thou/uL (4.0-11.0)
[2020-08-10 12:23] LABS: BE(vivo) -2.4 mmol/L (-2 to +3); HCO3 22.7 mmol/L (22.0-26.0); PCO2 40.4 mmHg (35.0-45.0); PO2 222.8 mmHg (80.0-100.0); pH 7.368 (7.360-7.450); sO2 99.4 % (92.0-98.0)
[2020-08-10 12:29] LABS: CALCIUM 11.4 mg/dL (8.5-10.1); CREATININE 3.8 mg/dL (0.7-1.3); POTASSIUM 4.8 mmol/L (3.5-5.1)
--- NOTE | 2020-08-10 12:33 | EKG ---
[address] [place] [place] [address] ELECTROCARDIOGRAM REPORT Name: COSTA YUSUF Room #: [facility].#: [id number] Admission: Attend Phys: Discharge: Date of : 64 Report #: [id number] [facility] ED Test Date: 2020-08-10 Test Time: 11:15:35 Pat Name: COSTA YUSUF Department: Room: Gender: Car Deliverer: LIONEL : 1960 Requested By: Oneil Gupta Order Number: [id number] MD: Ruddy Flores Measurements Intervals [place] Rate: 120 P: 145 GA: 112 QRS: 74 QRSD: 86 T: 46 QT: 320 QTc: 453 Interpretive Statements Sinus tachycardia Probable left atrial enlargement Baseline wander in lead(s) V4 Compared to ECG 07/23/2020 13:51:07 Sinus tachycardia no longer present Myocardial infarct finding no longer present Electronically Signed On 08-10-2020 12:33:15 MIXED CROP FARMER by Ruddy Flores [email or web address] <ELECTRONICALLY SIGNED> By: Ruddy Flores MD, [facility] 08/10/20 1233 1115 1115 Ruddy Flores MD, FACC /EPI
[2020-08-10 12:35] LABS: ALBUMIN 2.1 g/dL (3.4-5.0); TOTAL BILIRUBIN 0.5 mg/dL (0.2-1.0); TOTAL PROTEIN 9.2 g/dL (6.4-8.2)
[2020-08-10 12:45] LABS: URINE BILIRUBIN NEGATIVE (Negative); URINE BLOOD TRACE (Negative); URINE CLARITY CLEAR; URINE COLOR YELLOW; URINE GLUCOSE-RANDOM* NEGATIVE (Negative); URINE KETONES NEGATIVE (Negative); URINE LEUKOCYTES-REFLEX TRACE (Negative); URINE NITRITE-REFLEX NEGATIVE (Negative); URINE PROTEIN (DIPSTICK) 2+ (Negative); URINE UROBILINOGEN 0.2 E.U./dl (0.2-1.0)
[2020-08-10 13:00] LABS: SQUAMOUS None Seen /LPF (0-3); URINE WBC-REFLEX 6-15 Few /HPF (0-5)
[2020-08-10 13:01] LABS: URINE RBC 0-2 Rare /HPF (0-2)
[2020-08-10 13:02] LABS: CALCIUM OXALATE 0-3 Few /LPF (None Seen)
[2020-08-10 13:03] LABS: BACTERIA-REFLEX 1-9 Few /HPF (None Seen)
[2020-08-10 13:04] LABS: HYALINE CASTS 0-3 Few /LPF (None Seen)
[2020-08-10 13:21] LABS: METAMYELOCYTES 1 %
[2020-08-10 13:23] LABS: ABSOLUTE NEUTROPHILS 21.2 thou/uL (1.4-8.2); ATYPICAL LYMPHS 1 %; MYELOCYTES 1 %
[2020-08-10] MEDS ORDERED: AMOXICILLI400 MG/5 M PER TUBE (13:41)
[2020-08-10] MEDS ORDERED: VANACOF DM LIQ240 ML PER TUBE (13:42)
[2020-08-10] MEDS ORDERED: TOPROL XL25 MG PER TUBE (13:45)
[2020-08-10] MEDS ORDERED: KEPPRA100 MG/1 M PER TUBE (13:48)
--- NOTE | 2020-08-10 17:16 | NUR ---
60 YEAR OLD MALE ADMITTED TO ICU ROOM 243 VIA CART FROM ED AT 1630. PATIENT IS STIFF AND CONTRACTED. DIAYSIS CATH NOTED IN RT UPPER CHEST AREA, DIALYSIS HELD TODAY DUE TO RESP DISTRESS. PATIENT PLACED ON CARDIAC AND O2 SAT MONITOR. IVF INFUSED. WILL CONTINUE TO MONITOR.
--- NOTE | 2020-08-10 19:00 | NUR ---
PATIENT IS STABLE ON THE BIPAP, REMAINS TACHYPNIC, DR VELEZ UPDATED ON PATIENT STATUS. SLOWLY PROGRESSING. WILL CONTINUE TO MONITOR.
[2020-08-11] VITALS (54 sets, daily range): BP systolic 81–149; BP diastolic 41–84
[2020-08-11 03:45] LABS: HEMATOCRIT 23.5 % (42.0-52.0); MCH 28.8 pg (26.0-34.0); MCHC 31.4 g/dL (28.0-37.0); MCV 91.8 fL (80.0-100.0); RBC 2.56 mil/uL (4.50-6.00); RDW 18.6 % (10.5-14.5)
[2020-08-11 03:48] LABS: HEMOGLOBIN 7.4 gm/dL (14.0-18.0); PLATELET COUNT 365 thou/uL (150-400)
[2020-08-11 03:52] LABS: CALCIUM 10.4 mg/dL (8.5-10.1); CREATININE 4.4 mg/dL (0.7-1.3); MAGNESIUM 2.3 mg/dL (1.8-2.4); POTASSIUM 4.7 mmol/L (3.5-5.1)
[2020-08-11 04:41] LABS: ANISOCYTOSIS 1+
--- NOTE | 2020-08-11 06:12 | NUR ---
RESTED MOST OF SHIFT. INCONTINENT MODERATE LIQUIED STOOL. BATH COMPLETED. ADMISSION COMPLETED. PICTURES TAKEN OF WOUNDS AND REDRESSED. TURNED EVERY 2 HOURS FOR COMFORT AND SKIN CARE. NOTED RR 30-40'S AT 2044. NOTIFIED AND MOROPHINE X1 GIVEN WITH NOTED RELIEF. AGAIN INCREASED TO RR 30'S AND 2ND DOSE MOROPHINE X1 GIVEN. RR NOW 25. AT 0 PATIENT BECAME MORE AWAKE, STILL NO SPEECH BUT TAKING OFF BIPAP. ORDER FOR RESTRAINTS RECIEVED TO MAINTAIN BIPAP IN PLACE. PATIENT RELAXED AND FELL ASLEEP. WORKING ON GOALS AND PLAN OF CARE FOR NOC. HR NOW IN 90'S. TOLERATING BIPAP. CONTINUE TO ASSES CLOSELY.
[2020-08-11 14:02] LABS: BE(vivo) 3.2 mmol/L (-2 to +3); HCO3 26.3 mmol/L (22.0-26.0); PCO2 33.9 mmHg (35.0-45.0); pH 7.508 (7.360-7.450); sO2 89.6 % (92.0-98.0)
[2020-08-11 14:04] LABS: PO2 50.8 mmHg (80.0-100.0)
--- NOTE | 2020-08-11 15:07 | NUR ---
PT REMAINS ON BIPAP TODAY. ATTEMPTING TO WEAN DOWN FIO2 BUT PT UNABLE TO TOLERATE. ABG'S DONE AND CRITICAL RESULTS/ LOW PO2 GIVEN TO DR VELEZ. FIO2 INCREASED FOLLOWING ABG. DIALYSIS DONE THIS AM WITH 1.5L UF. FOLLOWING DIALYSIS PT HAVING BURSTS OF RAPID AFIB WITH RATES INTO 150-160'S. SCHEDULED DILTIAZEM AND METOPROLOL GIVEN AND DR PARRY NOTIFIED. HR IMPROVED FOLLOWING SCHEDULED MEDS. WILL CONTINUE TO MONITOR PT.
[2020-08-12] VITALS (28 sets, daily range): BP systolic 85–186; BP diastolic 39–77
[2020-08-12 03:03] LABS: HEMATOCRIT 20.6 % (42.0-52.0); RDW 18.8 % (10.5-14.5)
[2020-08-12 03:05] LABS: CALCIUM 9.9 mg/dL (8.5-10.1); MCH 28.5 pg (26.0-34.0); MCHC 31.2 g/dL (28.0-37.0); MCV 91.4 fL (80.0-100.0); PLATELET COUNT 384 thou/uL (150-400); POTASSIUM 3.8 mmol/L (3.5-5.1); RBC 2.26 mil/uL (4.50-6.00); WBC 23.9 thou/uL (4.0-11.0)
[2020-08-12 03:10] LABS: HEMOGLOBIN 6.4 gm/dL (14.0-18.0)
[2020-08-12 03:23] LABS: CREATININE 2.5 mg/dL (0.7-1.3)
[2020-08-12 04:32] LABS: ABSOLUTE NEUTROPHILS 20.3 thou/uL (1.4-8.2); ANISOCYTOSIS 2+; HYPOCHROMASIA 1+; MICROCYTES 1+; MYELOCYTES 1 %; PROMYELOCYTES 1 %; TOXIC GRANULATION 1+
--- NOTE | 2020-08-12 06:05 | NUR ---
Patient stable this shift. Patient is progressing towords goals. Fio2 is down to 35% Patient repositioned frequently. Am labs noted. Hgb low. Orders for 1 unit PRBC. Will transfuse for medical emergency as I am unable to get ahold of his spokesperson, a friend, Paul. No DPOA listed. See documentation on interventions for assessment details.
--- NOTE | 2020-08-12 19:41 | NUR ---
DR. PARRY ORDERED CASE MANAGEMENT CONSULT TO FIND OUT PT'S DPOA OR COLON OF STATE STATUS. ALESSANDRO, SECURITIES DEALER [employer] ENG CALLED TODAY AND WAS MADE AWARE OF 'S CONSULT AND REQUESTS.
--- NOTE | 2020-08-12 19:49 | NUR ---
PT WAS ON BIPAP AT BEGINNING OF SHIFT AND WAS ABLE TO BE CHANGED OVER TO NASAL CANNULA 2L. PT REMAINED ON 2L ENTIRE SHIFT. [id number] PT BECAME MORE AUDIBLY COARSE SOUNDING AND BEGAN COUGHING UP COPIOUS AMOUNTS OF THICK YELLOW SPUTUM. RN AND RT ASSISTED PT WITH SYBIL FOR SUCTIONING PT HAS HARD TIME EXPECTORATING SPUTUM. 02 SATS REMAINED GREATER THAN 94% AND PT REMAINS ON 2L. PT IS SLOWLY PROGRESSING TOWARDS GOALS.
[2020-08-13] VITALS (36 sets, daily range): BP systolic 86–171; BP diastolic 43–141
--- NOTE | 2020-08-13 07:34 | EKG ---
[address] [place] [address] ELECTROCARDIOGRAM REPORT Name: COSTA YUSUF Festus Room #: 243-P ADM IN M.R.#: [id number] Admission: 08/10/20 Attend Phys: Karsten Yoo MD Discharge: Date of : 64 Report #: [id number] [facility] ED Test Date: 2020-08-10 Test Time: 12:26:15 Pat Name: COSTA YUSUF Department: Room: 243 P Gender: M Satellite Project Site Monitor: CIRILO : 1960 Requested By: Oniel Gupta Order Number: [id number] MD: Long Meade Measurements Intervals [place] Rate: 120 P: 64 CT: 154 QRS: 73 QRSD: 83 T: 59 QT: 326 QTc: 461 Interpretive Statements Sinus tachycardia Probable left atrial enlargement Poor R wave progression Compared to ECG 08/10/2020 11:15:35 No significant change was found Electronically Signed On 08-13-2020 7:34:25 WHALE FISHERMAN by Long Meade [email or web address] <ELECTRONICALLY SIGNED> By: Long Meade MD, [facility] 08/13/20 0734 1226 1226 Long Meade MD, FACC /EPI
--- NOTE | 2020-08-13 07:43 | EKG ---
[address] [place] [address] ELECTROCARDIOGRAM REPORT Name: COSTA YUSUF Room #: 243-P ADM IN M.R.#: [id number] Admission: 08/10/20 Attend Phys: Karsten Yoo MD Discharge: Date of : 64 Report #: [id number] [facility] Test Date: 2020-08-11 Test Time: 13:15:36 Pat Name: COSTA YUSUF Department: Room: 243 P Gender: M Vegetable Canner: : 1960 Requested By: Karsten Yoo Order Number: [id number] MD: Long Meade Measurements Intervals [place] Rate: 100 P: -75 HI: 133 QRS: 80 QRSD: 80 T: QT: 371 QTc: 479 Interpretive Statements Sinus or ectopic atrial tachycardia Probable anteroseptal infarct, old Nonspecific T abnormalities, lateral leads Compared to ECG 08/10/2020 12:26:15 T-wave abnormality now present Ectopic atrial rhythm is now present Electronically Signed On 08-13-2020 7:43:05 RF MICROWAVE ENGINEER by Long Meade [email or web address] <ELECTRONICALLY SIGNED> By: Long Meade MD, [facility] 08/13/20 0743 1315 1315 Long Meade MD, [facility] /EPI
--- NOTE | 2020-08-13 07:54 | NUR ---
PATIENT PROGRESSING TORARDS GOALS, LESS O2 SUPPORT NEEDED, NO BIPAP REQUIRED. 2L/NC WITH O2SAT OF 98-99%. LESS ORAL SECRETIONS. PATIENT IS VERBALIZING MORE AND IS MORE INTERACTIVE. TF TOLERATED, WITH LARGE LIQUID BM.
--- NOTE | 2020-08-13 13:26 | NUR ---
FAXED CLINICAL UPDATES AND NEGATIVE COVID RESULTS TO [facility]. CONFIRMED WITH JAYASHREE AT [facility] THAT THEY RECEIVED AND WILL CONTACT EULALIO BLACK CM DIRECTOR, TODAY IF THEY HAVE ANY QUESTIONS. [facility] P [phone]; FAX [phone]
--- NOTE | 2020-08-13 16:19 | NUR ---
Called this AM to ask [place] at [phone] who was listed as POA on the patient. Was notified per nursing that patient is listed as their own responsible libertarian. Later in the day [place] contacted office to state that patient was to be a guardianship hearing today and the hearing has been postponed till patient returns to the facility. Attending Dr. Yoo was notified. to continue to follow for presumed return to [place] at discharge.
[2020-08-14] VITALS (15 sets, daily range): BP systolic 106–122; BP diastolic 60–73
[2020-08-14 04:29] LABS: CALCIUM 9.5 mg/dL (8.5-10.1); POTASSIUM 3.7 mmol/L (3.5-5.1)
[2020-08-14 04:54] LABS: CREATININE 4.6 mg/dL (0.7-1.3)
[2020-08-14 05:17] LABS: HEMATOCRIT 25.8 % (42.0-52.0); HEMOGLOBIN 8.3 gm/dL (14.0-18.0); MCH 29.2 pg (26.0-34.0); MCHC 32.2 g/dL (28.0-37.0); MCV 90.8 fL (80.0-100.0); RBC 2.84 mil/uL (4.50-6.00); RDW 18.5 % (10.5-14.5); WBC 22.1 thou/uL (4.0-11.0)
--- NOTE | 2020-08-14 11:46 | NUR ---
SPOKE WITH DR. HUIZAR REGARING Pt'S MEDICAL STATUS. PER DR HUIZAR, Pt NOT APPROPRIATE FOR PT/OT SERVICES AT THIS TIME AND THERAPY WOULD LIKELY BE MORE OF A TORTURE THAN A BENEFIT AT THIS TIME. CONTACTED DR. SCHNEIDER REGARDING DISCHARGING PT/OT ORDERS ON Pt. AWAITING RESPONSE. Pt TO BE DISCHARGED FROM PT [facility].
--- NOTE | 2020-08-14 14:02 | NUR ---
PT RESTING IN BED. HEMODIALYSIS THIS AM FROM [phone], 800 ML TAKEN OFF (PER HD RN). PT TOLERATED WELL. PT IS SCHEDULED TO HAVE PETITION FOR GUARDIANSHIP ON 09/04. PALLIATIVE CARE WAS CONSULTED. PLAN IS TO HAVE TWO PHYSICIANS MAKE THE PT DNR. PT CONTINUES TO HAVE OLIGUREA/ANUREA, LIQUID BM X2, AFEBRILE, TUBE FEEDING BOLUSES ARE BEING GIVEN THROUGH J-TUBE AND PT HAS BOWEL MOVEMENT IMMEDIATELY AFTER. DOES NOT APPEAR TO BE ABSORBING ANY TUBE FEED. PT HAS WOUNDS THROUGHOUT, WOUND CARE SAW PT AND GAVE NEW RECS TO DO PROVODINE SWABS ON ALL WOUNDS AND LEAVE OPEN TO AIR (ABD ON HIPS FOR COMFORT). PT HAS BEEN UPDATED AND EDUCATED ON PT CONDITION AND POC. PT NOT PROGRESSING TOWARDS POC.
--- NOTE | 2020-08-14 15:39 | NUR ---
INITIAL ASSESSMENT: Received consult. TIMA reviewed chart and spoke with nursing. Pt was admitted from [facility]. Pt with hx of CVA and ESRD. Pt goes to dialysis at [facility]. Pt has peg tube in place. Pt is unable to answer questions or make his needs known. Palliative care physician consulted to discuss code status and plan of care. TIMA spoke with staff at [facility], who state that pt's guardinship has been filed in [facility]. TIMA reviewed Case [employer] documentation. Guardianship filed on 07/20/2019 on behalf of [facility]. Guardianship hearing scheduled for 09/04/2019 at 0930. TIMA updated Director of Case Mgmt and palliative care physician. TIMA is following to assist as needed with discharge planning.
[2020-08-15 00:38] VITALS: BP 103/53
[2020-08-15 04:12] VITALS: BP 109/59
[2020-08-15 05:10] LABS: HEMATOCRIT 24.7 % (42.0-52.0); MCH 29.5 pg (26.0-34.0); MCHC 32.6 g/dL (28.0-37.0); MCV 90.5 fL (80.0-100.0); RBC 2.73 mil/uL (4.50-6.00); RDW 18.4 % (10.5-14.5); WBC 21.2 thou/uL (4.0-11.0)
[2020-08-15 05:41] LABS: POTASSIUM 3.9 mmol/L (3.5-5.1)
--- NOTE | 2020-08-15 05:48 | NUR ---
ASSUMED PT CARE AT 1900, PT IS AWAKE, ALERT, ORIENTED TO SELF, SR ON THE MONITOR, MOAN WITH TURNS, ASSESSMENTS CHARTED, TUBE FEEDING GIVEN; NO ACUTE DISTRESS NOTED, MEDS GIVEN PER SEP, NO CONCERNS AT THIS TIME, WILL PASS ON REPORT
[2020-08-15 07:10] VITALS: BP 124/62
[2020-08-15 11:00] VITALS: BP 108/58
--- NOTE | 2020-08-15 14:31 | NUR ---
SW reviewed chart and spoke with nursing. Pt was transferred to CCU from ICU. Critical access hospital received info from Keyshawn Lindsey that pt's cutter gas at [facility] is Dr. Antione Brian ( ). Discussed with Director of Case Mgmt. Contact info for Dr. Brian provided to [facility] cutter gas to discuss plan of care. Attending physician updated. Palliative care physician following. SW is following to assist as needed.
[2020-08-15 15:45] VITALS: BP 111/58
--- NOTE | 2020-08-15 19:36 | NUR ---
Opened eyes spontanously. No signs of pain, no n/v. PEG tube residual 120 ml.
[2020-08-15 20:02] VITALS: BP 119/64
[2020-08-16 04:05] VITALS: BP 120/88
--- NOTE | 2020-08-16 05:30 | NUR ---
ASSUMED PATIENT CARE AT 1845. VITAL SIGNS STABLE WITH NURSE NOT PERCEIVING ANY PAIN OR NAUSEA ON BEHALF OF PATIENT. HE IS DISORIENTED AND UNABLE TO PARTICIPATE IN CARE. BREATHING STABLE ON ROOM AIR EVIDENCED BY ASSESSMENTS AND SPOT OXYGENATION CHECKS. FREQUENT TURNS WITH SKIN CARE PROVIDED. TUBE FEED PROVIDED PER ORDER. CONTINUE PLAN OF CARE.
[2020-08-16 12:47] VITALS: BP 135/85
--- NOTE | 2020-08-16 13:50 | HC ---
[facility] [place] [address] CONSULTATION Name: PARAMJITCOSTA Room #: 218-P ADM IN M.R.#: [id number] Admission: 08/10/20 Attend Phys: Karsten Yoo MD Discharge: Date of : 64 Report #: [id number] THIS REPORT FOR: cc: Grant De La Torre Kevin E. DO Stephens, Thad A. MD ~ DATE OF SERVICE: 08/13/2020 WOUND CARE CONSULTATION PERSONAL PHYSICIAN: Grant De La Torre DO CHIEF COMPLAINT: Multiple decubitus ulcers. HISTORY OF PRESENT ILLNESS: This is a 60-year-old white male who we cared for in the past for multiple decubitus ulcers, who presented back from a nursing facility for increasing hypoxemia. The patient is now in the ICU, being treated for this. We have been asked to care for the patient's decubitus ulcers. The patient himself is nonverbal. There is no family here with him. All information is obtained from previous charting. PAST MEDICAL HISTORY: Significant for end-stage renal disease, on hemodialysis; history of pulmonary disease and vascular disease. CURRENT MEDICATIONS: Multiple, I reviewed the patient's medication list. DRUG ALLERGIES: None. SOCIAL HISTORY: The patient resides in a long-term care facility at this time. FAMILY HISTORY AND REVIEW OF SYSTEMS: Unobtainable given the patient's nonverbal status. PHYSICAL EXAMINATION: VITAL SIGNS: Stable. The patient is afebrile. GENERAL: This is an extremely cachectic, chronically ill-appearing white male who is nonverbal. HEENT: Normocephalic. Mucous membranes are exquisitely dry. Pupils are round. Sclerae white. NECK: Without JVD. LUNGS: Clear. HEART: Regular. ABDOMEN: Soft, nontender. EXTREMITIES: Evaluation of the bilateral hips reveals unstageable decubitus ulcers with 100% slough. There is deep tissue injury to the sacral region, deep [facility] [address] [place] [address] CONSULTATION Name: COSTA YUSUF Room #: 218-P [facility].#: [id number] Admission: 08/10/20 Attend Phys: Karsten Yoo MD Discharge: Date of : 64 Report #: [id number] tissue injury to the lower, mid thoracic and back region. There is an unstageable decubitus ulcer to the bilateral lateral malleolus. NEUROLOGIC: The patient is contracted and nonverbal. LABORATORY DATA: White count 22.1, hemoglobin 8.3, albumin 2.1. IMPRESSION: 1. Unstageable decubitus ulcer, bilateral lateral malleolus. 2. Unstageable decubitus ulcer, bilateral hips. 3. Deep tissue injury to the sacrum. 4. Deep tissue injury to mid thoracic and lower back region. 5. End-stage renal disease, on hemodialysis. 6. History of sepsis. 7. Severe protein-calorie malnutrition, albumin 2.1. PLAN: We will paint Betadine to all the ulcerations daily. We will put the patient on low air loss surface and have him turned every 2 hours. We will put the patient in heel protectors to be on at all times. We will attempt to maximize the patient's protein supplementation for healing. The patient has a G-tube, which we can utilize. Continue IV antibiotics as well as all other current medications. <ELECTRONICALLY SIGNED> By: Jose Delgado MD 08/16/20 1350 1321 1329 Jose Delgado MD /nt
--- NOTE | 2020-08-16 15:12 | NUR ---
Update provided to [facility]'s admission dir and DON at [phone]. Pt is now a DNR and multiple physicians have noted futile care with recommendations for comfort care/hospice at the group home. [facility] is agreeable and can provide comfort care to pt and are holding his room. They are requesting clinical update. Dc supply chain planner to fax. They will need scripts for comfort meds and hospice orders. Outside the hospital DNR in place and on the chart completed by the attending. Cm to arrange for [facility] ambulance once dc orders are confirmed tomorrow. Last dialysis treatment today.
[2020-08-16 15:30] VITALS: BP 134/78
--- NOTE | 2020-08-16 16:21 | NUR ---
FAXED CLINICAL UPDATE TO [facility] RECEIVED CONFIRMATION AND LEFT MSG WITH ADM.
[2020-08-16 20:06] VITALS: BP 140/53
--- NOTE | 2020-08-17 05:20 | NUR ---
CARE ASSUMED 1900. PT IS NOVERBAL. MINIMAL RESPONSE TO VERBAL STIMULI. DOES NOT FOLLOW COMMDANDS, OTHERWISE AWAKE. NO APPARENT DISTRESS. SR-ST ON THE TEST CENTER ADMINISTRATOR. BOLUS FEEDS 5X A DAY. BLOOD SUGARS STABLE. Q2 TURNS TOLERATED OTHERWISE PATIENT GRIEMACES AND MOANS WITH EACH TURN. NO NEW CONCERNS . WILL CONTINUE WITH CURRENT POC..
[2020-08-17 05:22] VITALS: BP 129/83
[2020-08-17 08:23] VITALS: BP 128/79
[2020-08-17] MEDS ORDERED: MORPHINE S10 MG/5 M2 PO (10:16)
--- NOTE | 2020-08-17 11:14 | NUR ---
PT. CONTINUES TO GRIMACE WITH TURNS. DOES NOT FOLLOW COMMANDS AT ALL NOR OREINTS TO SELF. ST ON MONITOR-LOW 100'S. WILL BE DISCHARGING BACK TO FACILITY TODAY AT 14:00 PM AND TRANSPORATION ALREADY SET UP FOR SUCH. JEVITY BOLUSES CONTINUE AND NO RESIDUAL NOTED.
--- NOTE | 2020-08-17 11:17 | NUR ---
PATIENT TO BE PICKED UP BY [facility] AT 14:00 THROUGH [facility] ([facility] CONFIRMATION NUMBER [id number]. [facility] NOTIFIED OF TIME OF DISCHARGE. CHART COPY REQUESTED. DISCHARGE ORDERS AND SUMMARY TO BE FAXED WHEN DOCUMENTS COMPLETED.
[2020-08-17 11:59] VITALS: BP 128/79
--- NOTE | 2020-08-17 14:15 | NUR ---
TRANSPORTATION CALLED AND SAID THEY VILMA NOW BE HERE AT 15:30PM TODAY NOW. IV REMOVED AND HE HAS PAIN MEDICATION ORDERED AND NEW RX WILL SEND WITH HIM FOR SUCH.
== END 2020-08-17 14:45 | DRG 871 ==
LOC: ER 11:13 → EROBS 14:35 → ICU 14:35 → 2N 08-14 16:47
PROVIDERS: Emergency Medicine; Hospitalist; Nurse Practitioner Family; Pediatrics; ADMIT Internal Medicine; ATTEND Internal Medicine
PROC: 5A09457 Assistance with Respiratory Ventilation, 24-96 Consecutive Hours, Continuous Positive Airway Pressure (ICD-10-PCS; principal; 2020-08-10)
PROC: 5A1D70Z Performance of Urinary Filtration, Intermittent, Less than 6 Hours Per Day (ICD-10-PCS; principal; 2020-08-10)
PROC: 30233N1 Transfusion of Nonautologous Red Blood Cells into Peripheral Vein, Percutaneous Approach (ICD-10-PCS; 2020-08-12)
PROC: 5A1D70Z Performance of Urinary Filtration, Intermittent, Less than 6 Hours Per Day (ICD-10-PCS; 2020-08-13)
PROC: 5A1D70Z Performance of Urinary Filtration, Intermittent, Less than 6 Hours Per Day (ICD-10-PCS; 2020-08-14)
PROC: 5A1D70Z Performance of Urinary Filtration, Intermittent, Less than 6 Hours Per Day (ICD-10-PCS; 2020-08-16)
DX: A41.9 Sepsis, unspecified organism (principal); N18.6 End stage renal disease; J96.01 Acute respiratory failure with hypoxia; G92 Toxic encephalopathy; J18.9 Pneumonia, unspecified organism; E43 Unspecified severe protein-calorie malnutrition; I12.0 Hypertensive chronic kidney disease with stage 5 chronic kidney disease or end stage renal disease; D63.8 Anemia in other chronic diseases classified elsewhere; L89.159 Pressure ulcer of sacral region, unspecified stage; R13.10 Dysphagia, unspecified; L89.229 Pressure ulcer of left hip, unspecified stage; L89.219 Pressure ulcer of right hip, unspecified stage; Z20.822 Contact with and (suspected) exposure to COVID-19; L89.890 Pressure ulcer of other site, unstageable; Z66 Do not resuscitate; Z87.891 Personal history of nicotine dependence; Z79.899 Other long term (current) drug therapy; Z99.2 Dependence on renal dialysis
CPT/HCPCS: 10078; 10081; 32100; 85076